=== PATIENT | male | born 1980 | race Caucasian/White ===

== ENCOUNTER 2018-11-20 18:43 | Emergency (ER) | payer OTHER ==
[~2018-11-20] VITALS: Ht 190.5 cm; Wt 79.4 kg
[2018-11-20 19:02] VITALS: Ht 190.5 cm; Wt 79.4 kg
[2018-11-20 20:30] VITALS: BP 120/68
== END 2018-11-20 20:30 | disposition home or self-care (01) ==
LOC: ED 18:43
DX: S86.911A Strain of unspecified muscle(s) and tendon(s) at lower leg level, right leg, initial encounter (principal); W18.30XA Fall on same level, unspecified, initial encounter; Y93.89 Activity, other specified; Y92.89 Other specified places as the place of occurrence of the external cause; Y99.8 Other external cause status
CPT/HCPCS: J1885